=== PATIENT | male | born 1965 | race Caucasian/White ===

== ENCOUNTER 2021-03-30 08:19 | Observation (INO) | payer OTHER, MEDICAID, SELFPAY ==
[2021-03-30] VITALS (32 sets, daily range): BP systolic 114–234; BP diastolic 61–139; PULSE 38–89; RESP 6–44; TEMP 36.1–36.8; O2SAT 63–100; BMI 29.5
--- NOTE | 2021-03-30 | PATH_ITS ---
[facility] Accession Number: [id number] . 01 Material submitted: . gallbladder - GALLBLADDER AND CONTENTS . 02 Diagnosis: Gallbladder and Contents, Cholecystectomy: Chronic cholecystitis with cholelithiasis. Negative for dysplasia and malignancy. [facility] 04/01/2021 1337 Local . 02 Electronically signed: . Radha Harding MD, Pathologist NPI- [id number] . 01 Gross description: . The specimen is received in formalin, labeled gallbladder and contents and consists of a 6.5 x 3.0 x 2.8 cm previously disrupted gallbladder with a 0.2 cm in diameter cystic duct. The serosa is pink-purple, focally hemorrhagic and smooth. Opening reveals green viscous bile with clotted blood and multiple house-diaz multifaceted to bosselated choleliths ranging from 0.3-1.0 cm. The mucosa is house-green and velvety to trabeculated and the wall thickness measures 0.2 cm. Conference Planning Manager sections are submitted to include the en face cystic duct margin (blue) in cassette A1. (EA:[id number]) /MRV 03/31/2021 1057 Local . 02 Pathologist provided ICD-10: K80.60 . 02 CPT . 230282 Performed at: 01 [facility] Cytology [address], [place], [place] [id number] MD Ok Miguel MD Phone: [phone] Performed at: 02 [facility] [address] [place], [place] [id number] MD Radha Harding MD Phone: [phone]
--- NOTE | 2021-03-30 08:24 | DI.RAD.S_ITS ---
PROCEDURE: XR CHEST 1V INDICATIONS: chest pain TECHNIQUE: One view of the chest was acquired. COMPARISON: None. FINDINGS: Surgical changes and devices: None. Lungs and pleura: Lungs are clear. No pleural effusions or pneumothorax. Mediastinum: Mediastinal contours appear normal. Heart size is normal. Bones and chest wall: No suspicious bony lesions. Overlying soft tissues appear unremarkable. IMPRESSION: No acute cardiopulmonary abnormality Dictated by: Renny Wynne M.D. on 03/30/2021 at 9:26 Approved by: Renny Wynne M.D. on 03/30/2021 at 9:27
--- NOTE | 2021-03-30 08:29 | ED.GENADULT ---
HPI - General Adult General Chief complaint: Abdominal Pain Stated complaint: SOB Time Seen by Provider: 03/30/21 08:23 Related Data Allergies Allergy/AdvReac Type Severity Reaction Status Date / Time No Known Drug Allergies Allergy Verified 03/30/21 08:39 Patient History Social History Smoking Status: Former smoker Course Orders Ordered: ED Orders 03/30/21 08:24 XR chest 1V Stat Complete Blood Count AUTO DIFF Stat Comprehensive Metabolic Panel Stat Lipase Stat Troponin & CK Cardiac Panel Stat EKG-12 Lead Stat Discontinued Medications Aspirin (Aspirin 81 Mg Chew Tab) 324 mg PO NOW ONE Stop: 03/30/21 08:24
[2021-03-30 08:40] LABS: Add Manual Diff / Slide Review NO; Basophils Absolute Auto 100 /uL (0-100); Basophils Percent Auto 0.9 % (0-2); Eosinophils Absolute Auto 200 /uL (0-450); Eosinophils Percent Auto 2.3 % (2-4); Hematocrit 48.7 % (41-53); Hemoglobin 16.9 g/dL (13.5-17.5); Lymphocytes Absolute Auto 1600 /uL (1100-4500); Lymphocytes Percent Auto 15.3 % (25-40); Mean Corpuscular HGB Conc 34.6 % (30-36); Mean Corpuscular Hemoglobin 30.4 PG (26-34); Mean Corpuscular Volume 87.9 fL (80-100); Monocytes Absolute Auto 900 /uL (0-900); Neutrophils Absolute Auto 7400 /uL (1500-7000); Neutrophils Percent Auto 72.5 % (50-75); Platelet Count 320 X10^3/uL (150-400); Red Blood Cell Count 5.54 X10^6/uL (4.5-5.9); White Blood Cell Count 10.3 X10^3/uL (4.5-11.0)
[2021-03-30] MEDS: ASPIRIN 81 MG CHEW TAB 324 MG PO (08:43)
--- NOTE | 2021-03-30 08:44 | DI.US.S_ITS ---
PROCEDURE: US ABDOMEN LIMITED INDICATIONS: ruq TECHNIQUE: Real-time focused scanning was performed of the abdomen, with image documentation. COMPARISON: None. FINDINGS: Liver: Mild increased echogenicity. Limited views could only be obtained due to patient pain which was worse with change in position and probe pressure and inability to suspend respirations without pain. Gallbladder: Multiple stones/sludge are seen in the gallbladder lying dependently and within the neck. There is gallbladder wall thickening measuring 4.5 millimeters. Sonographic Cordova's is positive. Pancreas: Not well seen. IMPRESSION: Cholelithiasis with gallbladder wall thickening and positive sonographic Cordova's suggest acute cholecystitis. Dictated by: Renny Wynne M.D. on 03/30/2021 at 9:24 Approved by: Renny Wynne M.D. on 03/30/2021 at 9:26
[2021-03-30] MEDS: ONDANSETRON 4 MG/2 ML INJ (08:45)
[2021-03-30] MEDS: MORPHINE 4 MG/ML INJ (08:45)
[2021-03-30 08:47] LABS: HEMOLYSIS < 15 (0-50)
[2021-03-30 08:52] LABS: Alanine Aminotransferase 21 IU/L (<50); Albumin 4.6 g/dL (3.5-5.0); Albumin Globulin Ratio 1.3 (1.0-2.8); Alkaline Phosphatase 98 U/L (38-126); Aspartate Aminotransferase 28 IU/L (17-59); BUN Creatinine Ratio 16.4 (6-22); Bilirubin Total 1.3 mg/dL (0.2-1.3); Blood Urea Nitrogen 19 mg/dL (9-20); Calcium 10.3 mg/dL (8.4-10.2); Carbon Dioxide 24 mmol/L (22-32); Chloride 101 mmol/L (98-107); Creatine Kinase 105 U/L (55-170); Estimated Glomerular Filt Rate > 60.0 mL/min (>60); Globulin 3.6 g/dL (1.7-4.1); Glucose 122 mg/dL (70-100); Lipase 81 U/L (23-300); Potassium 4.2 mmol/L (3.4-5.1); Sodium 137 mmol/L (137-145); Total Protein 8.2 g/dL (6.3-8.2)
--- NOTE | 2021-03-30 08:53 | ED_ITS ---
HPI - Chest Pain General Chief Complaint: Abdominal Pain Stated Complaint: SOB Time Seen by Provider: 03/30/21 08:23 Source: patient and family Mode of arrival: Wheelchair Limitations: no limitations History of Present Illness HPI narrative: Patient is a 55-year-old male who presents with sudden onset of epigastric pain that radiates will to the right and the left side. It came on suddenly he felt his feet and hands were cold this morning so he was trying to warm them by the fire pain progressively got worse. He is sometimes having chest pain. Concerned because his hands and feet are tingling. He appears to be in quite a bit of pain no nausea vomiting. Patient is fairly constant it has been ongoing for 1 hour nothing makes it better or worse. He is having some mild back pain as well. He said that this happened to him a year ago he was at [facility] they thought it was his gallbladder. He did not have a cholecystectomy. He does not remember the last time he which the doctor he mindy es no medications. Patient is noted to have low heart rate in the 40s he says that he was told he h ad a low heart rate last time he was in the hospital. complaint: chest pain Duration: constant Onset: during rest Severity: severe Related Data Home Medications Medication Instructions Recorded Confirmed No Known Home Medications 03/30/21 03/30/21 Allergies Allergy/AdvReac Type Severity Reaction Status Date / Time No Known Drug Allergies Allergy Verified 03/30/21 11:36 Review of Systems Review of Systems ROS Unobtainable: All systems reviewed & are unremarkable except as noted in HPI and below Constitutional Constitutional: Denies chills, Denies fever(s), Denies lethargy and Denies weakness Eyes Eyes: Denies change in vision, Denies eye discharge, Denies irritation and Denies loss of vision Cardiovascular Cardiovascular: Reports chest pain, Denies syncope, Denies rapid heart rate, Denies pedal edema, Denies dyspnea and Denies dyspnea on exertion Respiratory Respiratory: Denies cough, Denies dyspnea, Denies dyspnea on exertion and Denies wheezing Gastrointestinal Gastrointestinal: Reports as per HPI and Reports abdominal pain Musculoskeletal Musculoskeletal: Reports back pain, Denies deformity and Denies arthralgias Integumentary/Breasts Skin/Breast: Denies pruritus, Denies erythema, Denies rash and Denies wounds Neurologic Neurologic: Denies syncope, Denies loss of vision and Denies weakness Allergic/Immunologic Allergic/Immunologic: Denies wheezing Patient History Medical History (Updated 03/30/21 @ 11:36 by Radha Black RN) Hypertension Social History Smoking Status: Former smoker Smoking Status: Former smoker alcohol intake frequency: 0-2 drinks per day Substance Use Type: does not use Exam Initial Vital Signs Initial Vital Signs: Vital Signs Temperature 98.2 F 03/30/21 08:25 Pulse Rate 47 L 03/30/21 08:25 Respiratory Rate 26 H 03/30/21 08:25 Blood Pressure 216/107 H 03/30/21 08:25 Pulse Oximetry 99 03/30/21 08:25 GENERAL: 55-year-old male appears in distress and pain and in no acute distress. HEENT: Head atraumatic,EOMI, pupils reactive, face symmetric, moist mucous membranes CARDIOVASCULAR: Regular rate and rhythm without murmurs, rubs or gallops. RESPIRATORY: Breath sounds equal bilaterally, no wheezes rales or rhonchi. ABDOMEN: Soft, tender mid epigastric area negative Cordova sign mild left upper quadrant pain EXTREMITIES: Normal range of motion, no clubbing or edema. Neurovascularly intact NEUROLOGICAL: Alert and oriented x4.Normal gait and speech. Cranial nerves II t hrough XII grossly intact. SKIN: Warm, dry, no laceration, no petechiae, no rashes or lesions. 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) Stat Lactated Ringer's (Lactated Ringers) 1,000 mls @ 42 mls/hr IV CONT KRUNAL Last Infusion: 03/30/21 11:31 Dose: 0 mls/hr Documented by: Admin: 03/30/21 11:17 Dose: 42 mls/hr Documented by: JOHNNY Discontinued Medications Acetaminophen (Acetaminophen 325 Mg Tablet) 975 mg PO NOW ONE Stop: 03/30/21 11:10 Last Admin: 03/30/21 11:19 Dose: 975 mg Documented by: JOHNNY Aspirin (Aspirin 81 Mg Chew Tab) 324 mg PO NOW ONE Stop: 03/30/21 08:24 Last Admin: 03/30/21 08:43 Dose: 324 mg Documented by: JOHNNY Gabapentin (Gabapentin 300 Mg Capsule) 300 mg PO NOW ONE Stop: 03/30/21 11:10 Last Admin: 03/30/21 11:19 Dose: 300 mg Documented by: JOHNNY Hydromorphone HCl (Hydromorphone 1 Mg Inj) 1 mg IV NOW ONE Stop: 03/30/21 10:16 Last Admin: 03/30/21 10:30 Dose: 1 mg Documented by: JOHNNY Piperacillin Sod/Tazobactam (Sod 4.5 gm/ Sodium Chloride) 100 mls @ 200 mls/hr IV NOW ONE Stop: 03/30/21 10:27 Last Infusion: 03/30/21 11:16 Dose: 0 mls/hr Documented by: Admin: 03/30/21 10:31 Dose: 200 mls/hr Documented by: JOHNNY Vital Signs Vital signs: Vital Signs - 8 hr 03/30/21 08:25 03/30/21 08:31 03/30/21 08:32 Temperature 98.2 F Pulse Rate 47 L 47 L Respiratory Rate 26 H 29 H Blood Pressure 216/107 H 209/102 H 216/103 H Pulse Oximetry 99 98 03/30/21 08:33 03/30/21 08:49 03/30/21 09:00 Temperature Pulse Rate 47 L 48 L 50 L Respiratory Rate 35 H 24 44 H Blood Pressure 197/107 H 195/89 H Pulse Oximetry 100 89 L 63 L 03/30/21 09:17 03/30/21 09:30 03/30/21 09:31 Temperature Pulse Rate 51 L 45 L 45 L Respiratory Rate 42 H 23 26 H Blood Pressure 208/139 H 193/90 H Pulse Oximetry 92 100 100 03/30/21 09:45 03/30/21 10:00 03/30/21 10:08 Temperature Pulse Rate 41 L 46 L 43 L Respiratory Rate 13 14 20 Blood Pressure 203/101 H 234/103 H Pulse Oximetry 99 100 98 03/30/21 10:16 03/30/21 10:17 Temperature Pulse Rate 43 L 43 L Respiratory Rate 17 11 L Blood Pressure 217/103 H 225/102 H Pulse Oximetry 99 100 MDM - Chest Pain Lab Data Attestation: I reviewed the patient's lab results. Result diagrams: 03/30/21 08:27 03/30/21 08:27 Labs: Lab Results 03/30/21 03/30/21 03/30/21 Range/Units 08:27 08:27 09:49 WBC 10.3 (4.5-11.0) X10^3/uL RBC 5.54 (4.5-5.9) X10^6/uL Hgb 16.9 (13.5-17.5) g/dL Hct 48.7 (41-53) % MCV 87.9 (80-100) fL MCH 30.4 (26-34) PG MCHC 34.6 (30-36) % RDW 13.0 (11.6-14.8) % Plt Count 320 (150-400) X10^3/uL Neut % (Auto) 72.5 (50-75) % Lymph % (Auto) 15.3 L (25-40) % [place] % (Auto) 9.0 (3-14) % Eos % (Auto) 2.3 (2-4) % Baso % (Auto) 0.9 (0-2) % Neut # (Auto) 7400 H (2323-8785) /uL Lymph # (Auto) 1600 (9491-8966) /uL [place] # (Auto) 900 (0-900) /uL Eos # (Auto) 200 (0-450) /uL Baso # (Auto) 100 (0-100) /uL Sodium 137 (137-145) mmol/L Potassium 4.2 (3.4-5.1) mmol/L Chloride 101 (98-107) mmol/L Carbon Dioxide 24 (22-32) mmol/L BUN 19 (9-20) mg/dL Creatinine 1.16 (0.66-1.25) mg/dL Estimated GFR > 60.0 (>60) mL/min BUN/Creatinine Ratio 16.4 (6-22) Glucose 122 H (70-100) mg/dL Calcium 10.3 H (8.4-10.2) mg/dL Total Bilirubin 1.3 (0.2-1.3) mg/dL AST 28 (17-59) IU/L ALT 21 (<50) IU/L Alkaline Phosphatase 98 (38-126) U/L Total Creatine Kinase 105 (55-170) U/L CK-MB (CK-2) 3.84 H (<2.37) ng/mL CK-MB (CK-2) Rel Index 3.7 (1.5-5.0) % Troponin I < 0.012 (0.01-0.034) ng/mL Total Protein 8.2 (6.3-8.2) g/dL Albumin 4.6 (3.5-5.0) g/dL Globulin 3.6 (1.7-4.1) g/dL Albumin/Globulin Ratio 1.3 (1.0-2.8) Lipase 81 (23-300) U/L SARS-CoV-2 (PCR) Negative (Negative) Urine Dip Bedside Urine Glucose Negative Bedside Urine Bilirubin - Negative Bedside Urine Ketone + 15 Urine Specific [place] 1.020 Bedside Urine Occult Blood - Negative Bedside Urine pH 7.5 Bedside Urine Protein - Negative Bedside Urine Urobilinogen - Negative Bedside Urine Nitrite - Negative Bedside Urine Leukocytes - Negative Esterase Imaging Data US - abdomen: Radiologist's Impression: PROCEDURE: US ABDOMEN LIMITED INDICATIONS: ruq TECHNIQUE: Real-time focused scanning was performed of the abdomen, with image documentation. COMPARISON: None. FINDINGS: Liver: Mild increased echogenicity. Limited views could only be obtained due to patient pain which was worse with change in position and probe pressure and inability to suspend respirations without pain. Gallbladder: Multiple stones/sludge are seen in the gallbladder lying dependently and within the neck. There is gallbladder wall thickening measuring 4.5 millimeters. Sonographic Cordova's is positive. Pancreas: Not well seen. IMPRESSION: Cholelithiasis with gallbladder wall thickening and positive sonographic Cordova's suggest acute cholecystitis. Dictated by: Renny Wynne M.D. on 03/30/2021 at 9:24 Approved by: Renny Wynne M.D. on 03/30/2021 at 9:26 Chest x-ray: Radiologist's Impression: PROCEDURE: XR CHEST 1V INDICATIONS: chest pain TECHNIQUE: One view of the chest was acquired. COMPARISON: None. FINDINGS: Surgical changes and devices: None. Lungs and pleura: Lungs are clear. No pleural effusions or pneumothorax. Mediastinum: Mediastinal contours appear normal. Heart size is normal. Bones and chest wall: No suspicious bony lesions. Overlying soft tissues appear unremarkable. IMPRESSION: No acute cardiopulmonary abnormality Dictated by: Renny Wynne M.D. on 03/30/2021 at 9:26 ECG Data Attestation: I personally reviewed and interpreted this ECG as follows: Interpretation: Sinus bradycardia 5 p.r. 152 QRS [address] changes MDM Narrative Medical decision making narrative: Patient continues to be bradycardic and quite a bit of pain. He is mildly tender in his epigastric region differential includes dissection, acute coli cystitis, acute coronary syndrome. Blood Work is overall reassuring pain improved with morphine, blood pressure also improved. However pain quickly comes back and he is given dilaudid. Dilaudid causes him to become sleepy and heart rate decreases test 38 which point he was given atropine 0.5 mg. Which improved his heart rate. 1020am Dr. lopes updated patient's symptoms test results and accepts requests Zosyn. Discharge Plan Departure Patient Disposition: Admitted as Observation Clinical Impression: Cholecystitis Admit Date/Time: 03/30/21 10:28 Admit Provider: Ferny Lopes
[2021-03-30 09:06] LABS: Troponin I < 0.012 ng/mL (0.01-0.034)
[2021-03-30 09:21] LABS: CKMB % Relative Index 3.7 % (1.5-5.0); Creatine Kinase MB 3.84 ng/mL (<2.37)
[2021-03-30] MEDS: HYDROMORPHONE 1 MG INJ IV (10:30)
[2021-03-30] MEDS: PIPERACILLIN/TAZO 4.5 GM in SODIUM CHLORIDE 0.9% 100 ML 200 ML IV (10:31)
[2021-03-30] MEDS: ATROPINE 1 MG/10 ML SYRINGE IV (10:52)
--- NOTE | 2021-03-30 10:54 | PC.NURSE ---
after 1mg dilaudid IV patient o2 sats in the upper 70s. placed initially on 5lNC, increased spo2 to 100%, O2 reduced 2l at 100% spo2. Hr decreased into the mid 30s, verbal order for 0.5mg atropine IV given and over rode out of the pixys. Given and within Minutes HR came up to the mid 70s. Provider at bedside and aware
[2021-03-30 10:57] LABS: COVID19 - ADMIT (NP swab/PCR) Negative (Negative)
[2021-03-30 11:07] LABS: Bacteria Urine None Seen; RBC Urine None Seen (0-5/HPF); WBC Urine None Seen (0-5/HPF)
[2021-03-30 11:14] LABS: Culture Indicated Urine Cult Not Indicated; Urine Comments Microscopic Normal
[2021-03-30] MEDS: LACTATED RINGERS 1,000 ML 42 ML IV (11:17)
[2021-03-30] MEDS: GABAPENTIN 300 MG CAPSULE PO (11:19)
[2021-03-30] MEDS: ACETAMINOPHEN 325 MG TABLET 975 MG PO (11:19)
--- NOTE | 2021-03-30 11:51 | PM.HP.1 ---
History of Present Illness History of Present Illness Date Patient Seen: 03/30/21 Time Patient Seen: 11:51 Chief complaint: SOB Narrative: 55M presented to the ER with complaint of abdominal pain. Nausea no emesis radiates to back associated with bloating and occured after eating sausage. One previous similar episode last year treated conservatively. Workup WBC 10, TB 1.3, normal LFTs Abdominal US -Cholelithiasis with gallbladder wall thickening and positive sonographic Cordova's suggest acute cholecystitis. No previous surgery no known medical conditions. Patient History Medical History Hypertension Family & Social History Social History: household members family Safety & Behavioral: Feels Safe in Current Yes Environment Been Physically Hurt or No Threatened By a Person Tobacco & Substance use: Smoking Status Never smoker alcohol intake never alcohol intake frequency 0-2 drinks per day Substance Use Type does not use Meds Home Medications and Allergies Home Medications Medication Instructions Recorded Confirmed Type No Known Home Medications 03/30/21 03/30/21 History Allergies Allergy/AdvReac Type Severity Reaction Status Date / Time No Known Drug Allergies Allergy Verified 03/30/21 11:36 Review of Systems Review of Systems ROS: Yes All systems reviewed with the patient and are negative except as otherwise documented Exam Vital Signs (past 8 hours): - 03/30/21 08:25 03/30/21 08:31 03/30/21 08:32 Temperature 98.2 F Pulse Rate 47 L 47 L Respiratory Rate 26 H 29 H Blood Pressure 216/107 H 209/102 H 216/103 H Pulse Oximetry 99 98 03/30/21 08:33 03/30/21 08:49 03/30/21 09:00 Temperature Pulse Rate 47 L 48 L 50 L Respiratory Rate 35 H 24 44 H Blood Pressure 197/107 H 195/89 H Pulse Oximetry 100 89 L 63 L 03/30/21 09:17 03/30/21 09:30 03/30/21 09:31 Temperature Pulse Rate 51 L 45 L 45 L Respiratory Rate 42 H 23 26 H Blood Pressure 208/139 H 193/90 H Pulse Oximetry 92 100 100 03/30/21 09:45 03/30/21 10:00 03/30/21 10:08 Temperature Pulse Rate 41 L 46 L 43 L Respiratory Rate 13 14 20 Blood Pressure 203/101 H 234/103 H Pulse Oximetry 99 100 98 03/30/21 10:16 03/30/21 10:17 03/30/21 10:30 Temperature Pulse Rate 43 L 43 L 45 L Respiratory Rate 17 11 L 22 Blood Pressure 217/103 H 225/102 H Pulse Oximetry 99 100 94 03/30/21 10:31 03/30/21 10:46 03/30/21 10:50 Temperature Pulse Rate 45 L 38 L 61 Respiratory Rate 22 6 L 14 Blood Pressure 176/85 H 211/101 H Pulse Oximetry 100 95 100 03/30/21 10:55 03/30/21 11:00 03/30/21 11:15 Temperature Pulse Rate 83 89 83 Respiratory Rate 13 12 12 Blood Pressure 172/90 H 171/95 H Pulse Oximetry 100 100 100 03/30/21 11:37 Temperature Pulse Rate 70 Respiratory Rate 16 Blood Pressure 157/100 H Pulse Oximetry 100 Oxygen Delivery Method Room Air Oxygen Flow Rate 2 Narrative Exam Narrative: GENERAL-well developed adult male, no acute distress HEENT-no scleral icterus, hearing intact NECK-no JVD, trachea midline CVS- regular rate, no peripheral edema RESP-unlabored respiratory effort, no audible wheezing GI-Positive Cordova's sign. MSK-no cyanosis or clubbing, extremities without deformity SKIN-warm, dry NEURO-alert and oriented, no focal deficits PYSCH-Appropriate mood and affect Objective Labs Result Diagrams: 03/30/21 08:27 03/30/21 08:27 Labs: Laboratory Results - last 24 hr 03/30/21 03/30/21 03/30/21 08:27 08:27 09:49 WBC 10.3 RBC 5.54 Hgb 16.9 Hct 48.7 MCV 87.9 MCH 30.4 MCHC 34.6 RDW 13.0 Plt Count 320 Neut % (Auto) 72.5 Lymph % (Auto) 15.3 L [place] % (Auto) 9.0 Eos % (Auto) 2.3 Baso % (Auto) 0.9 Neut # (Auto) 7400 H Lymph # (Auto) 1600 [place] # (Auto) 900 Eos # (Auto) 200 Baso # (Auto) 100 Sodium 137 Potassium 4.2 Chloride 101 Carbon Dioxide 24 BUN 19 Creatinine 1.16 Estimated GFR > 60.0 BUN/Creatinine Ratio 16.4 Glucose 122 H Calcium 10.3 H Total Bilirubin 1.3 AST 28 ALT 21 Alkaline Phosphatase 98 Total Creatine Kinase 105 CK-MB (CK-2) 3.84 H CK-MB (CK-2) Rel Index 3.7 Troponin I < 0.012 Total Protein 8.2 Albumin 4.6 Globulin 3.6 Albumin/Globulin Ratio 1.3 Lipase 81 Urine RBC Urine WBC Urine Bacteria Ur Culture Indicated? Micro UA Comment SARS-CoV-2 (PCR) Negative 03/30/21 11:06 WBC RBC Hgb Hct MCV MCH MCHC RDW Plt Count Neut % (Auto) Lymph % (Auto) [place] % (Auto) Eos % (Auto) Baso % (Auto) Neut # (Auto) Lymph # (Auto) [place] # (Auto) Eos # (Auto) Baso # (Auto) Sodium Potassium Chloride Carbon Dioxide BUN Creatinine Estimated GFR BUN/Creatinine Ratio Glucose Calcium Total Bilirubin AST ALT Alkaline Phosphatase Total Creatine Kinase CK-MB (CK-2) CK-MB (CK-2) Rel Index Troponin I Total Protein Albumin Globulin Albumin/Globulin Ratio Lipase Urine RBC None seen Urine WBC None seen Urine Bacteria None seen Ur Culture Indicated? Cult not indicated Micro UA Comment Microscopic normal SARS-CoV-2 (PCR) Assessment & Plan Assessment and plan (1) Cholecystitis: Status: Acute Assessment & Plan narrative: 55 y.o healthy male with acute cholecystitis. Normal LFTs, ultrasound demonstrates thickened gallbladder wall and positive Cordova's sign, consistent with acute cholecystitis. -NPO -IVF + Zosyn -Likely discharge home from recovery room I hari a diagram to illustrate the disease process. Operative and non operative management of biliary colic was discussed. The patient wants to proceed with a laparoscopic cholecystectomy. Operative risks including bleeding, infection, bile leak, damage to surrounding structures, conversion to open were discussed. Postoperative recovery expectations and activity restrictions were discussed. Their questions have been answered and they are in agreement with this plan.
--- NOTE | 2021-03-30 12:26 | SUR.OPER ---
Supine on padded OR bed, head on pillow, right arm secured on padded arm boards at <90 degrees abduction, left arm is wrapped in gel and tucked, legs uncrossed, safety belt at thigh, tape over blanket over lower legs.
[2021-03-30] MEDS: BUPIVACAINE 0.25% (PF) VIAL 30 ML INJ (12:37)
--- NOTE | 2021-03-30 15:24 | P.OP_ITS ---
Operative Date/Time/Diagnoses Date of procedure: 03/30/21 Time of procedure: 15:24 Pre-op diagnosis: Acute cholecystitis Post-op diagnosis: same Procedure & Clinicians Procedure: Laparoscopic cholecystectomy Same procedure as scheduled: Yes Indications: Acute cholecystitis. Positive Cordova sign, cholelithiasis and wall thickening on ultrasound Surgeon: Ferny Parrish Anesthesia Type: General Operative Notes Findings: Acute cholecystitis Estimated Blood Loss (mL): 35 Procedure in detail: The patient was placed supine on the table and bilateral l ower extremity compression devices were applied. Anesthesia was induced they were intubated with an endotracheal tube and received Zosyn. A time-out was performed. They were prepped and draped in sterile fashion. An infraumbilical incision was made, the umbilical stalk was elevated and the fascia was sharply incised entering the abdomen atraumatically. A blunt tip 12mm balloon trocar was then inserted, pneumoperitoneum was established and inspection of the abdomen demonstrated no evidence of injury. They were placed head up and right side up and then a 11 mm port was placed high in the epigastrium and two 5mm in the right upper quadrant. The omentum was plastered to the gallbladder consistent with acute cholecystitis and this was taken down carefully. The gallbladder was tensely distended and it was percutaneously drained to facilitate its manipulation. The gallbladder was grasped by the fundus and retracted over the liver and retracted laterally by the infundibulum. Using electrocautery the lateral plane between the gallbladder and the liver was opened towards the fundus. The gallbladder was then retracted laterally and the medial plane was developed in the same manner. With the gallbladder mobilized the bottom of the cystic plate was visualized. The hepatocystic triangle was meticulosly skeletonized using hook electrocautery of all fat and fibrous tissue from both the front and the back. Only two structures were then clearly seen entering the gallbladder the cystic duct and the cystic artery. With the critical view of safety fully established the cystic duct was clipped twice proximally and once distally using the 10 mm clip applied under direct visualization and then sharply divided. The cystic artery was divided in the same fashion. The gallbladder was removed from the liver bed using electro cautery. The liver bed was then inspected for hemostasis and this was achieved. The abdomen was irrigated with sterile saline and inspection was made that showed the clips in good position. The specimen was removed using Endo-Catch. The abdomen was desufflated. The umbilical fascia was closed with 0 Vicryl in a [id number] fashion under direct visualization. Skin incisions were irrigated and closed with 4-0 Monocryl. 30 ml of 0.25% bupivacaine was infiltrated into the subcutaneous tissue of the incisions. The wounds were sealed with Dermabond. Patient emerged from anesthesia was extubated and transferred to recovery in stable condition. The sponge and instrument count at the end of the operation was correct. Complications: none Post-operative Condition: stable Disposition: same day surgery
== END 2021-03-30 15:44 | disposition home or self-care (01) ==
LOC: ED 10:27 → AC 10:29
PROVIDERS: Admitting Provider Surgery; Emergency Provider Emergency Medicine; Referring Provider Emergency Medicine; Visit Provider Surgery
PROC: 0FT44ZZ Resection of Gallbladder, Percutaneous Endoscopic Approach (ICD-10-PCS; CPT 47562; principal; 2021-03-30 12:00)
DX: K80.00 Calculus of gallbladder with acute cholecystitis without obstruction (principal); I10 Essential (primary) hypertension; K21.9 Gastro-esophageal reflux disease without esophagitis; E66.9 Obesity, unspecified; Z68.30 Body mass index [BMI] 30.0-30.9, adult; Z20.822 Contact with and (suspected) exposure to COVID-19
CPT/HCPCS: 47562; 36415; 71045; 76705; 80053; 81003; 81015; 82550; 82553; 83690; 84484; 85025; 87635; 93005; 96365; 96375; 99218; 99284; C9803; G0378; J0360; J0461; J1100; J1170; J2270; J2405; J2543; J2704

== ENCOUNTER 2023-04-04 17:13 | Emergency (ER) | payer OTHER, MEDICAID, SELFPAY ==
[2023-04-04 17:55] VITALS: BP 159/101; PULSE 89; RESP 16; TEMP 36.1; O2SAT 98; BMI 29.5
[2023-04-04 20:33] VITALS: BP 124/65
[2023-04-04 21:02] LABS: Add Manual Diff / Slide Review NO; Basophils Absolute Auto 100 /uL (0-100); Basophils Percent Auto 0.8 % (0-2); Eosinophils Absolute Auto 300 /uL (0-450); Eosinophils Percent Auto 3.2 % (2-4); Hematocrit 47.3 % (41-53); Hemoglobin 16.5 g/dL (13.5-17.5); Lymphocytes Absolute Auto 2100 /uL (1100-4500); Lymphocytes Percent Auto 21.8 % (25-40); Mean Corpuscular HGB Conc 34.8 % (30-36); Mean Corpuscular Hemoglobin 30.9 PG (26-34); Mean Corpuscular Volume 88.7 fL (80-100); Monocytes Absolute Auto 1300 /uL (0-900); Monocytes Percent Auto 13.7 % (3-14); Neutrophils Absolute Auto 5900 /uL (1500-7000); Neutrophils Percent Auto 60.5 % (50-75); Platelet Count 265 X10^3/uL (150-400); Red Blood Cell Count 5.34 X10^6/uL (4.5-5.9); White Blood Cell Count 9.8 X10^3/uL (4.5-11.0)
[2023-04-04 21:07] LABS: BUN Creatinine Ratio 21.4 (6-22); Blood Urea Nitrogen 22 mg/dL (9-20); Calcium 9.4 mg/dL (8.4-10.2); Carbon Dioxide 27 mmol/L (22-32); Chloride 103 mmol/L (98-107); Creatine Kinase 54 U/L (55-170); Estimated Glomerular Filt Rate > 60 mL/min (>60); Glucose 90 mg/dL (70-100); HEMOLYSIS 24 (0-50); Potassium 4.4 mmol/L (3.4-5.1); Sodium 138 mmol/L (137-145)
[2023-04-04 21:18] LABS: Troponin I < 0.012 ng/mL (0.01-0.034)
[2023-04-04 21:51] VITALS: BP 140/84; PULSE 64; O2SAT 98
[2023-04-04 22:00] VITALS: PULSE 69; O2SAT 96
--- NOTE | 2023-04-04 22:04 | ED_ITS ---
HPI - Extremity Problem General Chief complaint: Extremity Problem,Nontraumatic Stated complaint: Arms aching, BP 175/99? Time Seen by Provider: 04/04/23 18:14 Source: patient Mode of arrival: Ambulatory History of Present Illness HPI Narrative: Patient is a 58-year-old male who is here for evaluation of right arm aching. He states that his symptoms did start this morning. It has been consistent all day he has had symptoms like this in the past but it has been intermittent. He was concerned that maybe he was having some heart issues because of the arm pain. No shortness of breath. No nausea vomiting. Has not tried anything for the symptoms prior to arrival. Related Data Home Medications Medication Instructions Recorded Confirmed No Known Home Medications 03/30/21 03/30/21 Previous Rx's Medication Instructions Recorded acetaminophen 325 mg capsule 650 mg PO QID PRN pain #60 caps 03/30/21 (Tylenol) docusate sodium 100 mg capsule 100 mg PO BID #30 caps 03/30/21 (Colace) ibuprofen 200 mg tablet 400 mg PO Q6H #60 tabs 03/30/21 oxycodone 5 mg tablet 5 mg PO Q8H PRN pain #30 tabs 03/30/21 Allergies Allergy/AdvReac Type Severity Reaction Status Date / Time No Known Drug Allergies Allergy Verified 04/04/23 17:55 Review of Systems Constitutional Constitutional: Reports system reviewed and no additional complaints, except as documented Cardiovascular Cardiovascular: Reports system reviewed and no additional complaints, except as documented Respiratory Respiratory: Reports system reviewed and no additional complaints, except as documented Musculoskeletal Musculoskeletal: Reports system reviewed and no additional complaints, except as documented Integumentary/Breasts Skin/Breast: Reports system reviewed and no additional complaints, except as documented Neurologic Neurologic: Reports system reviewed and no additional complaints, except as documented Patient History Medical History Hypertension Social History household members: family Smoking Status: Never smoker alcohol intake: never Smoking Status: Never smoker alcohol intake frequency: 0-2 drinks per day Substance Use Type: does not use Exam Initial Vital Signs Initial Vital Signs: Vital Signs Temperature 97.0 F L 04/04/23 17:55 Pulse Rate 89 04/04/23 17:55 Respiratory Rate 16 04/04/23 17:55 Blood Pressure 159/101 H 04/04/23 17:55 Pulse Oximetry 98 04/04/23 17:55 Oxygen Delivery Method Room Air 04/04/23 17:55 [facility] Head: normal to inspection and normocephalic Resp Effort & Inspection: normal respiratory effort Auscultation: clear to auscultation bilaterally Cardio Rate: regular rate Rhythm: regular rhythm Neuro General: patient alert, patient awake, patient oriented x3 and moves all extremities Course Orders Ordered: ED Orders 04/04/23 18:14 EKG-12 Lead Stat 04/04/23 20:30 Basic Metabolic Panel Stat Complete Blood Count AUTO DIFF Stat Troponin & CK Cardiac Panel Stat Vital Signs Vital signs: Vital Signs - 8 hr 04/04/23 20:33 04/04/23 21:51 04/04/23 21:51 Pulse Rate 64 Blood Pressure 124/65 140/84 Pulse Oximetry 98 04/04/23 22:00 04/04/23 22:08 04/04/23 22:09 Pulse Rate 69 67 Blood Pressure 130/89 Pulse Oximetry 96 97 MDM - Extremity (Nontraumatic) Lab Data Attestation: I reviewed the patient's lab results. 04/04/23 20:30 04/04/23 20:30 Labs: Lab Results 04/04/23 04/04/23 Range/Units 20:30 20:30 WBC 9.8 (4.5-11.0) X10^3/uL RBC 5.34 (4.5-5.9) X10^6/uL Hgb 16.5 (13.5-17.5) g/dL Hct 47.3 (41-53) % MCV 88.7 (80-100) fL MCH 30.9 (26-34) PG MCHC 34.8 (30-36) % RDW 13.0 (11.6-14.8) % Plt Count 265 (150-400) X10^3/uL Neut % (Auto) 60.5 (50-75) % Lymph % (Auto) 21.8 L (25-40) % Rice % (Auto) 13.7 (3-14) % Eos % (Auto) 3.2 (2-4) % Baso % (Auto) 0.8 (0-2) % Neut # (Auto) 5900 (2627-4901) /uL Lymph # (Auto) 2100 (2029-9221) /uL Rice # (Auto) 1300 H (0-900) /uL Eos # (Auto) 300 (0-450) /uL Baso # (Auto) 100 (0-100) /uL Sodium 138 (137-145) mmol/L Potassium 4.4 (3.4-5.1) mmol/L Chloride 103 (98-107) mmol/L Carbon Dioxide 27 (22-32) mmol/L BUN 22 H (9-20) mg/dL Creatinine 1.03 (0.66-1.25) mg/dL Estimated GFR > 60 (>60) mL/min BUN/Creatinine Ratio 21.4 (6-22) Glucose 90 (70-100) mg/dL Calcium 9.4 (8.4-10.2) mg/dL Total Creatine Kinase 54 L (55-170) U/L CK-MB (CK-2) TNP CK-MB (CK-2) Rel Index TNP Troponin I < 0.012 (0.01-0.034) ng/mL ECG Data Interpretation: Sinus rhythm Ventricular rate is 65 Normal axis Normal QRS Normal QTC No ST T wave changes MDM Narrative Medical decision making narrative: Patient is having right arm tingling. Troponins negative. EKG is unremarkable. Low suspicion for ACS. I discussed this with the patient. Discussed return precautions and follow-up instructions. He will contact his primary doctor for follow-up. He expressed understanding and agreement with plan. Discharge Plan Departure Patient Disposition: Home Clinical Impression: Numbness and tingling of right arm Instructions: DI for Numbness/Tingling Activity Restrictions/Additional Instructions: I recommend that you continue to take all of your medications as directed. I also recommend that you contact the cardiology office for a follow-up as you have been previously instructed. Return to the emergency department for new or worsening symptoms. Prescriptions: No Action No Known Home Medications ibuprofen 200 mg tablet 400 mg PO Q6H Qty: 60 0RF docusate sodium [Colace] 100 mg capsule 100 mg PO BID Qty: 30 0RF acetaminophen [Tylenol] 325 mg capsule 650 mg PO QID PRN (Reason: pain) Qty: 60 0RF oxycodone 5 mg tablet 5 mg PO Q8H PRN (Reason: pain) Qty: 30 0RF Referrals: Clare Gonsalves MD [Physician] - Stand Alone Forms: Patient Portal/API
[2023-04-04 22:08] VITALS: PULSE 67; O2SAT 97
[2023-04-04 22:09] VITALS: BP 130/89
== END 2023-04-04 22:12 | disposition home or self-care (01) ==
PROVIDERS: Emergency Provider Emergency Medicine
DX: R20.0 Anesthesia of skin (principal); R20.2 Paresthesia of skin; R07.9 Chest pain, unspecified
CPT/HCPCS: 36415; 80048; 82550; 84484; 85025; 93005; 99283